=== PATIENT | female | born 1935 | race Caucasian/White ===

== ENCOUNTER 2018-02-06 09:30 | Outpatient (CLI) | payer MEDICARE ==
--- NOTE | 2018-02-06 12:32 | BD ---
DEXA BONE MINERAL DENSITOMETRY EXAM, DENSITY SCAN: DATE: 02/06/2018. COMPARISON: 10/19/2012. HISTORY: Postmenopausal female undergoing screening for osteoporosis. FINDINGS: BMD (g/cm2) LEFT: Femoral Neck: 0.670 T-Score: -1.6, previous -1.4 Total Proximal Femur: 0.731 T-Score: -1.7, previous -1.6 Right femur was not interrogated on the prior examination. RIGHT: Femoral Neck: 0.616 T-Score: -2.1 Total Proximal Femur: 0.963 T-Score: -2.0 The FRAX-WHO fracture risk assessment tool reports a 10-year fracture risk in an untreated patient at 11-12% for major osteoporotic fracture and 3.1-4.1% for hip fracture. Impression: Bilateral proximal femur/femoral neck osteopenia, correlating with a moderately increased risk for fr acture. POS: ARASH
== END 2018-02-06 09:31 | disposition home or self-care (01) ==
LOC: BICMAMMO 09:30
PROVIDERS: ATTEND Family Medicine
DX: Z12.31 Encounter for screening mammogram for malignant neoplasm of breast (principal); Z13.820 Encounter for screening for osteoporosis; M85.851 Other specified disorders of bone density and structure, right thigh; M85.852 Other specified disorders of bone density and structure, left thigh; R92.1 Mammographic calcification found on diagnostic imaging of breast
CPT/HCPCS: 77063; 77067; 77080

== ENCOUNTER 2019-02-07 11:06 | Outpatient (CLI) | payer MEDICARE ==
--- NOTE | 2019-02-07 11:29 | MMO ---
Bilateral MAMMO Bilat Screen [facility]. CLINICAL HISTORY: Patient is 83 years old and is seen for screening. The patient has no family history of breast cancer. The patient has no personal history of cancer. The patient has a history of right Excisional Biopsy in 1979 - benign - age 46. VIEWS: The views performed were: bilateral craniocaudal with tomosynthesis and bilateral mediolateral oblique with tomosynthesis. FILMS COMPARED: The present examination has been compared to prior imaging studies performed at [facility] on 01/29/2015, 02/03/2016, 02/03/2017 and 02/06/2018. This study has been interpreted with the assistance of computer-aided detection. MAMMOGRAM FINDINGS: There are scattered fibroglandular densities. There are vascular calcifications seen in both breasts. There are no suspicious masses, suspicious calcifications, or new areas of architectural distortion. IMPRESSION: A ROUTINE FOLLOW-UP MAMMOGRAM IN 1 YEAR IS RECOMMENDED. THE RESULTS OF THIS EXAM WERE SENT TO THE PATIENT. ACR BI-RADS Category 2 - Benign finding MAMMOGRAPHY NOTE: 1. A negative mammogram report should not delay a biopsy if a dominant of clinically suspicious mass is present. 2. Approximately 10% to 15% of breast cancers are not detected by mammography. 3. Adenosis and dense breasts may obscure an underlying neoplasm. Reported by: KURT PETERSON MD Electonically Signed: [id number]
== END 2019-02-07 11:07 | disposition home or self-care (01) ==
LOC: BICMAMMO 11:06
PROVIDERS: ATTEND Family Medicine
DX: Z12.31 Encounter for screening mammogram for malignant neoplasm of breast (principal)
CPT/HCPCS: 77063; 77067

== ENCOUNTER 2020-02-21 08:55 | Outpatient (CLI) | payer MEDICARE ==
--- NOTE | 2020-02-21 09:32 | MMO ---
Bilateral MAMMO Bilat Screen [facility]. CLINICAL HISTORY: Patient is 84 years old and is seen for screening. The patient has no family history of breast cancer. The patient has no personal history of cancer. The patient has a history of right Excisional Biopsy in 1979 - benign - age 46. VIEWS: The views performed were: bilateral craniocaudal with tomosynthesis and bilateral mediolateral oblique with tomosynthesis. FILMS COMPARED: The present examination has been compared to prior imaging studies performed at [facility] [place] on 02/03/2016, 02/03/2017, 02/06/2018 and 02/07/2019. This study has been interpreted with the assistance of computer-aided detection. MAMMOGRAM FINDINGS: The breasts are heterogeneously dense, which could obscure a lesion on mammography. There are stable benign appearing calcifications seen in both breasts. There are also vascular calcifications. There are no suspicious masses, suspicious calcifications, or new areas of architectural distortion. IMPRESSION: THERE IS NO MAMMOGRAPHIC EVIDENCE OF MALIGNANCY. A ROUTINE FOLLOW-UP MAMMOGRAM IN 1 YEAR IS RECOMMENDED. THE RESULTS OF THIS EXAM WERE SENT TO THE PATIENT. ACR BI-RADS Category 2 - Benign finding MAMMOGRAPHY NOTE: 1. A negative mammogram report should not delay a biopsy if a dominant of clinically suspicious mass is present. 2. Approximately 10% to 15% of breast cancers are not detected by mammography. 3. Adenosis and dense breasts may obscure an underlying neoplasm. Reported by: KURT PETERSON MD Electonically Signed: [id number]
== END 2020-02-21 08:56 | disposition home or self-care (01) ==
LOC: BICMAMMO 08:55
PROVIDERS: ATTEND Family Medicine
DX: Z12.31 Encounter for screening mammogram for malignant neoplasm of breast (principal); Z91.89 Other specified personal risk factors, not elsewhere classified
CPT/HCPCS: 77063; 77067

== ENCOUNTER 2021-02-18 13:30 | Inpatient (IN) | payer MEDICARE ==
[~2021-02-18 13:30] MED LIST: Iopamidol-370 76% 500 ML 1 ML ONE
[2021-02-18 14:07] LABS: #Lymphocytes 0.4 thou/uL (1.20-3.40); #Monocytes 0.1 thou/uL (0.11-0.59); #Neutrophils 3.5 thou/uL (1.40-6.50); %Basophils 0.6 % (0.0-1.0); %Eosinophils 0.1 % (0.0-10.0); %Lymphocytes 10.7 % (21.0-51.0); %Monocytes 3.4 % (0.0-10.0); %Neutrophils 85.2 % (42.0-75.0); Hemoglobin 13.5 g/dL (12.0-16.0); Mean Corpuscular HGB CONC 33.5 g/dL (32.0-36.0); Mean Corpuscular Volume 95.5 fL (78.0-98.0); Mean Platelet Volume 8.9 fL (7.4-10.4); Platelet Count 134 thou/uL (130-400); RBC Distribution Width 11.7 % (11.5-14.5); Red Blood Cell (RBC) Count 4.22 mill/uL (4.20-5.40); White Blood Cell (WBC) Count 4.1 thou/uL (4.8-10.8)
[2021-02-18 14:17] LABS: INR-International Normal Ratio 0.9; Prothrombin Time 12.5 sec (12.0-14.7)
[2021-02-18 14:18] LABS: PTT 24.7 sec (22.9-36.1)
[2021-02-18 14:23] LABS: ALT (SGPT) 21 U/L (8-55); AST (SGOT) 27 U/L (5-34); Albumin 4.3 g/dL (3.4-4.8); Alkaline Phosphatase 65 U/L (40-110); Anion Gap 11 mmol/L (10-20); BUN (Urea Nitrogen) 19 mg/dL (9.8-20.1); Bilirubin, Total 0.9 mg/dL (0.2-1.2); CK (CPK) 178 U/L (29-168); Calc. Creatinine Clearance 0 mL/min (70-130); Calcium 9.3 mg/dL (7.8-10.44); Carbon Dioxide 33 mmol/L (23-31); Chloride 99 mmol/L (98-107); Globulin 2.1 g/dL (2.4-3.5); Glucose 121 mg/dL (83-110); Potassium 4.1 mmol/L (3.5-5.1); Protein, Total 6.4 g/dL (5.8-8.1); Sodium 139 mmol/L (136-145)
[2021-02-18 15:44] LABS: Bilirubin Negative (Negative); Blood, Urine Negative (Negative); Clarity Clear (Clear); Glucose, Urine (Dipstick) Normal (Negative); Ketone, Urine Negative (Negative); Leukocyte Negative Leu/uL (Negative); Nitrite Negative (Negative); Protein, Urine (Dipstick) Negative (Neg-Trace); Urobilinogen Normal mg/dL (Less than 2); pH, Urine 7.5 (5.0-9.0)
[2021-02-18] MEDS ORDERED: Aspirin 325 MG TAB ONE (16:40)
[2021-02-18] MEDS ORDERED: Ondansetron ODT 4 MG TAB PO PRN (17:24)
[2021-02-18] MEDS ORDERED: Acetaminophen 325 MG TAB PO PRN (17:24)
[2021-02-18] MEDS ORDERED: hydrALAZINE 20 MG/ML VIAL SLOW IVP PRN (17:26)
[2021-02-18] MEDS ORDERED: Enoxaparin Sodium 40 MG/0.4 ML SYRINGE SC SCH (17:30)
[2021-02-18 18:00] LABS: SARS-CoV-2 NAA Rapid Test Not Detected (NotDetected)
[2021-02-18 18:10] LABS: Hemoglobin A1c 5.4 % (4.0-6.0)
[2021-02-18] MEDS ORDERED: Dextrose 50% Abboject 50 ML SYRINGE SLOW IVP PRN (19:49)
[2021-02-18] MEDS ORDERED: Dextrose 5% in Water 1,000 ML IV PRN (19:49)
[2021-02-18 21:53] VITALS: BMI 19.1
[2021-02-18] MEDS: Atorvastatin Calcium 40 MG TAB PO SCH (23:27)
[2021-02-19 06:10] LABS: #Lymphocytes 0.5 thou/uL (1.20-3.40); #Monocytes 0.2 thou/uL (0.11-0.59); #Neutrophils 3.7 thou/uL (1.40-6.50); %Basophils 0.5 % (0.0-1.0); %Eosinophils 0.2 % (0.0-10.0); %Lymphocytes 11.7 % (21.0-51.0); %Monocytes 5.3 % (0.0-10.0); %Neutrophils 82.3 % (42.0-75.0); Hemoglobin 12.8 g/dL (12.0-16.0); Mean Corpuscular HGB CONC 34.1 g/dL (32.0-36.0); Mean Corpuscular Hemoglobin 32.5 pg (27.0-31.0); Mean Corpuscular Volume 95.2 fL (78.0-98.0); Mean Platelet Volume 8.8 fL (7.4-10.4); Platelet Count 130 thou/uL (130-400); RBC Distribution Width 11.8 % (11.5-14.5); Red Blood Cell (RBC) Count 3.94 mill/uL (4.20-5.40); White Blood Cell (WBC) Count 4.5 thou/uL (4.8-10.8)
[2021-02-19 06:34] LABS: Anion Gap 9 mmol/L (10-20); BUN (Urea Nitrogen) 15 mg/dL (9.8-20.1); Calc. Creatinine Clearance 49 mL/min (70-130); Calcium 9.2 mg/dL (7.8-10.44); Carbon Dioxide 31 mmol/L (23-31); Chloride 103 mmol/L (98-107); Cholesterol 228 mg/dl (< 200 Desired); Glucose 103 mg/dL (83-110); HDL Cholesterol 114 mg/dL (>60 Neg Risk); LDL Cholesterol, Calculated 105 mg/dL; Potassium 3.7 mmol/L (3.5-5.1); Sodium 139 mmol/L (136-145); Triglycerides 44 mg/dL (Less than 150)
[2021-02-19] MEDS ORDERED: Aspirin 325 mg Enteric Coated Tablet PO SCH (09:00)
[2021-02-19] MEDS: Aspirin 81 mg Enteric Coated Tablet PO SCH (09:05)
[2021-02-19] MEDS: Calcium Carbonate 600 MG TAB PO SCH (09:06)
[2021-02-19] MEDS: Enoxaparin Sodium 40 MG/0.4 ML SYRINGE SC SCH (09:07)
[2021-02-19] MEDS: Atorvastatin Calcium 40 MG TAB PO SCH (20:22)
[2021-02-19] MEDS: Melatonin 3 MG TAB PO PRN (21:55)
[2021-02-20 04:41] LABS: #Lymphocytes 0.6 thou/uL (1.20-3.40); #Monocytes 0.3 thou/uL (0.11-0.59); #Neutrophils 4.3 thou/uL (1.40-6.50); %Basophils 0.3 % (0.0-1.0); %Eosinophils 0.3 % (0.0-10.0); %Lymphocytes 11.6 % (21.0-51.0); %Monocytes 6.5 % (0.0-10.0); %Neutrophils 81.3 % (42.0-75.0); Hemoglobin 14.2 g/dL (12.0-16.0); Mean Corpuscular HGB CONC 33.2 g/dL (32.0-36.0); Mean Corpuscular Hemoglobin 31.8 pg (27.0-31.0); Mean Corpuscular Volume 95.8 fL (78.0-98.0); Mean Platelet Volume 8.8 fL (7.4-10.4); Platelet Count 127 thou/uL (130-400); RBC Distribution Width 11.9 % (11.5-14.5); Red Blood Cell (RBC) Count 4.45 mill/uL (4.20-5.40); White Blood Cell (WBC) Count 5.3 thou/uL (4.8-10.8)
[2021-02-20 04:59] LABS: Anion Gap 11 mmol/L (10-20); BUN (Urea Nitrogen) 18 mg/dL (9.8-20.1); Calc. Creatinine Clearance 47 mL/min (70-130); Calcium 9.4 mg/dL (7.8-10.44); Carbon Dioxide 31 mmol/L (23-31); Chloride 103 mmol/L (98-107); Glucose 100 mg/dL (83-110); Potassium 3.5 mmol/L (3.5-5.1); Sodium 141 mmol/L (136-145)
[2021-02-20] MEDS: Calcium Carbonate 600 MG TAB PO SCH (09:27)
[2021-02-20] MEDS: Enoxaparin Sodium 40 MG/0.4 ML SYRINGE SC SCH (09:27)
[2021-02-20] MEDS: Aspirin 81 mg Enteric Coated Tablet PO SCH (09:27)
[2021-02-20] MEDS: Losartan 25 MG TAB PO SCH (09:28)
[2021-02-20] MEDS: Atorvastatin Calcium 40 MG TAB PO SCH (21:05)
[2021-02-21] MEDS: Aspirin 81 mg Enteric Coated Tablet PO SCH (08:02)
[2021-02-21] MEDS: Enoxaparin Sodium 40 MG/0.4 ML SYRINGE SC SCH (08:02)
[2021-02-21] MEDS: Calcium Carbonate 600 MG TAB PO SCH (08:02)
[2021-02-21] MEDS: Losartan 25 MG TAB PO SCH (08:03)
[2021-02-21] MEDS ORDERED: HYDROcodone/Acetaminophen 5/325 mg Tablet PO PRN (08:09)
[2021-02-21] MEDS ORDERED: GUAIFENESIN SF SOLN 200 MG/10 ML UDCUP PO PRN (08:09)
[2021-02-21] MEDS ORDERED: Bisacodyl 5 MG TAB PO PRN (08:09)
[2021-02-21] MEDS ORDERED: Calcium Carbonate 500 MG ChewTAB PO PRN (08:09)
[2021-02-21] MEDS ORDERED: Loperamide HCl 2 MG CAP PO PRN (08:09)
[2021-02-21] MEDS ORDERED: Cepastat Lozenges 1 LOZ PO PRN (08:09)
[2021-02-21] MEDS ORDERED: Senokot S 8.6-50 MG TAB PO PRN (08:09)
[2021-02-21] MEDS ORDERED: hydrALAZINE 20 MG/ML VIAL SLOW IVP PRN (08:10)
[2021-02-21] MEDS: Amlodipine 5 MG TAB PO SCH (09:16)
[2021-02-21] MEDS: Atorvastatin Calcium 40 MG TAB PO SCH (22:23)
[2021-02-22] MEDS: Calcium Carbonate 600 MG TAB PO SCH (08:15)
[2021-02-22] MEDS: Aspirin 81 mg Enteric Coated Tablet PO SCH (08:16)
[2021-02-22] MEDS: Amlodipine 5 MG TAB PO SCH (08:19)
[2021-02-22] MEDS: Losartan 25 MG TAB PO SCH (08:19)
[2021-02-22] MEDS: Enoxaparin Sodium 40 MG/0.4 ML SYRINGE SC SCH (08:19)
[2021-02-22] MEDS: Atorvastatin Calcium 40 MG TAB PO SCH (20:16)
[2021-02-23] MEDS: Enoxaparin Sodium 40 MG/0.4 ML SYRINGE SC SCH (08:22)
[2021-02-23] MEDS: Losartan 25 MG TAB PO SCH (08:22)
[2021-02-23] MEDS: Aspirin 81 mg Enteric Coated Tablet PO SCH (08:22)
[2021-02-23] MEDS: Amlodipine 5 MG TAB PO SCH (08:22)
[2021-02-23] MEDS: Calcium Carbonate 600 MG TAB PO SCH (08:22)
[2021-02-23] MEDS: Atorvastatin Calcium 40 MG TAB PO SCH (21:27)
[2021-02-23] MEDS: Melatonin 3 MG TAB PO PRN (21:27)
[2021-02-24] MEDS: Calcium Carbonate 600 MG TAB PO SCH (08:38)
[2021-02-24] MEDS: Aspirin 81 mg Enteric Coated Tablet PO SCH (08:38)
[2021-02-24] MEDS: Losartan 25 MG TAB PO SCH (08:38)
[2021-02-24] MEDS: Enoxaparin Sodium 40 MG/0.4 ML SYRINGE SC SCH (08:38)
[2021-02-24] MEDS: Amlodipine 5 MG TAB PO SCH (08:51)
[2021-02-24 15:50] VITALS: BP 128/75; TEMP 98.3
== END 2021-02-24 18:50 | disposition home or self-care (01) | DRG 66 ==
LOC: ERS 13:30 → ERHOLD 15:57 → NEURO 21:45 → OBSVTOIN 02-19 11:11
PROVIDERS: ADMIT Internal Medicine; ATTEND Internal Medicine
DX: I63.332 Cerebral infarction due to thrombosis of left posterior cerebral artery (principal); Z20.822 Contact with and (suspected) exposure to COVID-19; R47.01 Aphasia; M47.816 Spondylosis without myelopathy or radiculopathy, lumbar region; E78.5 Hyperlipidemia, unspecified; G89.29 Other chronic pain; I07.1 Rheumatic tricuspid insufficiency; I10 Essential (primary) hypertension; R47.1 Dysarthria and anarthria; Z90.710 Acquired absence of both cervix and uterus
CPT/HCPCS: 0240U; 36415; 36416; 70450; 70496; 70498; 70551; 80048; 80053; 80061; 81003; 82550; 83036; 83735; 84443; 84484; 85025; 85610; 85730; 90471; 90732; 93005; 93306; 96372; G0009; G0378; J1650; Q9967

== ENCOUNTER 2025-02-19 10:29 | Emergency (ER) | payer MEDICARE ==
[2025-02-19 12:29] LABS: #Basophils 0.04 10x3/uL (0.0-0.2); #Eosinophils Less than 0.03 10x3/uL (0.0-0.7); #Monocytes 0.48 10x3/uL (0.11-0.59); #Neutrophils 5.72 10x3/uL (1.40-6.50); %Basophils 0.6 % (0.0-1.0); %Eosinophils 0.1 % (0.0-10.0); %Lymphocytes 11.1 % (21.0-51.0); %Monocytes 6.8 % (0.0-10.0); %Neutrophils 81.1 % (42.0-75.0); Hematocrit 42.5 % (36.0-47.0); Hemoglobin 14.3 g/dL (12.0-16.0); Mean Corpuscular Hemoglobin 31.6 pg (27.0-31.0); Mean Corpuscular Volume 94.0 fL (78.0-98.0); Platelet Count 157 10x3/uL (130-400); Red Blood Cell (RBC) Count 4.52 mill/uL (4.20-5.40); White Blood Cell (WBC) Count 7.05 10x3/uL (4.8-10.8)
[2025-02-19 12:46] LABS: INR-International Normal Ratio 1.0; PTT 28.6 sec (22.9-36.1); Prothrombin Time 13.0 sec (12.0-14.7)
[2025-02-19 12:47] LABS: ALT (SGPT) 35 U/L (Less than 34); AST (SGOT) 40 U/L (11-34); Albumin 4.6 g/dL (3.1-4.5); Alkaline Phosphatase 61 U/L (40-110); Anion Gap 15 mmol/L (10-20); BUN (Urea Nitrogen) 24 mg/dL (9.8-20.1); Bilirubin, Total 0.8 mg/dL (0.3-1.2); Calc. Creatinine Clearance 0 mL/min (70-130); Calcium 9.3 mg/dL (7.8-10.44); Carbon Dioxide 30 mmol/L (23-31); Chloride 102 mmol/L (98-107); Globulin 2.1 g/dL (2.4-3.5); Glucose 85 mg/dL (83-110); Lipase 32 U/L (8-78); Potassium 4.1 mmol/L (3.5-5.1); Sodium 143 mmol/L (136-145)
[2025-02-19] MEDS ORDERED: Iopamidol-370 76% 500 ML MDV (1 ML CHARGE) ONE (13:30)
== END 2025-02-19 14:58 | disposition home or self-care (01) ==
LOC: ERS 10:29
DX: S20.211A Contusion of right front wall of thorax, initial encounter (principal); S40.011A Contusion of right shoulder, initial encounter; S40.021A Contusion of right upper arm, initial encounter; I10 Essential (primary) hypertension; Z86.73 Personal history of transient ischemic attack (TIA), and cerebral infarction without residual deficits; Z79.899 Other long term (current) drug therapy; W18.11XA Fall from or off toilet without subsequent striking against object, initial encounter; Y92.002 Bathroom of unspecified non-institutional (private) residence as the place of occurrence of the external cause
CPT/HCPCS: 70450; 71260; 72125; 74177; 80053; 83605; 83690; 84484; 85025; 85610; 85730; 86850; 86900; 86901; 93005; Q9967